=== PATIENT | male | born 1950 | race Caucasian/White ===

== ENCOUNTER 2020-10-06 09:21 | Emergency (ER) | payer OTHER ==
[~2020-10-06] VITALS: Ht 160 cm; Wt 97.1 kg
[2020-10-06] MEDS ORDERED: VICODIN HP 10-1 EAC1 PO (09:36)
[2020-10-06] MEDS ORDERED: LISINOPRIL2.5 MG PO (09:36)
[2020-10-06] MEDS ORDERED: CARVEDILOL25 MG PO (09:36)
[2020-10-06] MEDS ORDERED: NEURONTIN100 MG PO (09:36)
[2020-10-06] MEDS ORDERED: FLEXERIL PO (09:36)
[2020-10-06 10:38] VITALS: BP 188/107
== END 2020-10-06 10:39 | disposition home or self-care (01) ==
LOC: M.ERS 09:21
DX: S61.215A Laceration without foreign body of left ring finger without damage to nail, initial encounter (principal); I10 Essential (primary) hypertension; Z79.899 Other long term (current) drug therapy; Z91.030 Bee allergy status; Z88.6 Allergy status to analgesic agent; Z88.0 Allergy status to penicillin; W22.8XXA Striking against or struck by other objects, initial encounter; Y93.89 Activity, other specified; Y92.89 Other specified places as the place of occurrence of the external cause; Y99.8 Other external cause status

== ENCOUNTER → 2020-10-25 | Outpatient (CLI) | payer OTHER ==
[~2020-10-25] MED LIST: CARVEDILOL25 MG PO; FLEXERIL PO; LISINOPRIL2.5 MG PO; NEURONTIN100 MG PO; VICODIN HP 10-1 EAC1 PO
[2020-10-25 08:23] LABS: ABSOLUTE EOSINOPHILS 0.2 thou/uL (0.0-0.7); ABSOLUTE LYMPHOCYTES 0.9 thou/uL (0.8-5.3); ABSOLUTE MONOCYTES 0.4 thou/uL (0.0-1.2); BASOPHILS 0.5 %; EOSINOPHILS 4.5 %; HEMATOCRIT 44.9 % (42.0-52.0); HEMOGLOBIN 15.2 gm/dL (14.0-18.0); LYMPHOCYTES 20.9 %; MCH 28.5 pg (26.0-34.0); MCHC 33.9 g/dL (28.0-37.0); MONOCYTES 8.2 %; MPV 8.7 fl. (7.2-11.1); NUCLEATED RBCS 0 /100WBC; PLATELET COUNT* 146 thou/uL (150-400); POLYS 65.9 %; RBC 5.34 mil/uL (4.50-6.00); RDW-CV 13.5 % (10.5-14.5); WBC 4.5 thou/uL (4.0-11.0)
[2020-10-25 08:28] LABS: ALBUMIN 3.8 g/dL (3.4-5.0); ALKALINE PHOSPHATASE 73 U/L (46-116); ANION GAP 7 mmol/L (7-16); BUN 15 mg/dL (7-18); CALCIUM 8.8 mg/dL (8.5-10.1); CHLORIDE 106 mmol/L (98-107); CHOLESTEROL 161 mg/dL (<200); CO2 29 mmol/L (21-32); CREATININE 1.2 mg/dL (0.6-1.3); GLUCOSE 121 mg/dL (70-99); HDL CHOLESTEROL 41 mg/dL (>40); LDL CHOLESTEROL 101 mg/dL (<100); POTASSIUM 4.1 mmol/L (3.5-5.1); SGOT 21 U/L (15-37); SGPT 19 U/L (30-65); SODIUM 142 mmol/L (136-145); TC:HDL 3.9 Ratio (Not establshd); TOTAL BILIRUBIN 0.8 mg/dL (<0.1-1.0); TOTAL PROTEIN 8.2 g/dL (6.4-8.2); TRIGLYCERIDE 99 mg/dL (<150); VLDL 20 mg/dL (<40)
[2020-10-25 08:48] LABS: SERUM ASSESSMENT Clear
[2020-10-26 02:06] LABS: GLYCOHEMOGLOBIN (HGB A1C) 5.5 % (4.8-5.6)
== END ==
LOC: M.LAB 07:46
PROVIDERS: ATTEND Family Medicine
DX: Z13.1 Encounter for screening for diabetes mellitus (principal); Z13.220 Encounter for screening for lipoid disorders; I10 Essential (primary) hypertension